=== PATIENT | female | born 1980 | race Caucasian/White ===

== ENCOUNTER 2018-04-10 18:00 | Emergency (ER) | payer OTHER, BC ==
[2018-04-10 18:00] VITALS: BMI 45.2
[2018-04-10 18:09] VITALS: BP 158/88; PULSE 84; RESP 20; TEMP 98.6; O2SAT 100
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
--- NOTE | 2018-04-11 07:50 | RAD ---
Date of service: 04/10/2018 PROCEDURE: Cervical Spine Radiographs. HISTORY: Pain. COMPARISON: None. FINDINGS: BONES: Mild straightening of the cervical curvature without fracture or spondylolisthesis. [id number] cervical spondylosis appreciated at the inferior cervical spine, seen worst at C5-6 anteriorly. Facet joints appear intact throughout. The odontoid process appears unremarkable. DISC SPACES: Moderate disc height loss seen at C5-6 further indicating degenerative disease. SOFT TISSUES: Normal. No prevertebral soft tissue swelling. OTHER FINDINGS: None. IMPRESSION: Mild straightening the cervical curvature without fracture or spondylolisthesis. [id number] multilevel cervical spondylosis. No demonstrated fracture or spondylolisthesis.
== END 2018-04-10 19:17 | disposition home or self-care (01) ==
LOC: C.ER 18:00
DX: S13.4XXA Sprain of ligaments of cervical spine, initial encounter (principal); V49.40XA Driver injured in collision with unspecified motor vehicles in traffic accident, initial encounter